=== PATIENT | male | born 1970 | race Caucasian/White ===

== ENCOUNTER 2020-10-25 09:12 | Outpatient (CLI) | payer OTHER | END 2020-10-25 09:13 | disposition home or self-care (01) | LOC: COV 09:12 | PROVIDERS: ATTEND Family Medicine | DX: Z20.828 Contact with and (suspected) exposure to other viral communicable diseases (principal) ==

== ENCOUNTER 2021-03-13 11:05 | Day surgery (SDC) | payer OTHER ==
[2021-03-13] MEDS ORDERED: LACTATED RINGERS 1,000 ML IV ONE (11:45)
[2021-03-13] MEDS ORDERED: HYDROmorphone 0.5 MG/0.5 ML SYRINGE IVP PRN (11:54)
[2021-03-13] MEDS ORDERED: fentaNYL 100 MCG/2 ML VIAL IVP PRN (11:54)
[2021-03-13] MEDS ORDERED: ePHEDrine 50 MG/ML VIAL IVP PRN (11:54)
[2021-03-13] MEDS ORDERED: METOCLOPRAMIDE 10 MG/2 ML VIAL IVP PRN (11:54)
[2021-03-13] MEDS ORDERED: ONDANSETRON 4 MG/2 ML VIAL IVP PRN (11:54)
[2021-03-13] MEDS ORDERED: ATROPINE ABBOJECT 1 MG/10 ML SYRINGE IVP PRN (11:54)
[2021-03-13] MEDS ORDERED: NALOXONE 0.4 MG/ML VIAL IVP PRN (11:54)
[2021-03-13] MEDS ORDERED: MORPHINE 2 MG/ML CARPUJECT IVP PRN (11:54)
--- NOTE | 2021-03-13 11:54 | ANESTHESIA ---
Pre-Anesthesia VS, & Labs - Diagnosis high risk colonoscopy - Procedure colonoscopy Vital Signs: Temp Pulse Resp BP Pulse Ox 36.7 C 48 L 16 124/61 100 03/13/21 11:30 03/13/21 11:30 03/13/21 11:30 03/13/21 11:30 03/13/21 11:30 Height: 5 ft 10 in Weight (kg): 81.4 kg Body Mass Index: 25.7 BMI Classification: Overweight - NPO >8 hours Home Medications and Allergies No Known Home Medications 03/07/21 Allergies/Adverse Reactions: Allergies Allergy/AdvReac Type Severity Reaction Status Date / Time No Known Drug Allergies Allergy Verified 03/07/21 11:52 Anes History & Medical History - Anesthetic History Anesthesia Complications: reports: No previous complications Family history of Anesthesia Complications: Denies Family history of Malignant Hyperthermia: Denies - Medical History Cardiovascular: reports: None Pulmonary: reports: None Gastrointestinal: reports: None Urinary: reports: None Musculoskeletal: reports: None Endocrine/Autoimmune: reports: None Skin: reports: Eczema - Surgical History Orthopedic: reports: Spine surgery Exam General: Alert, Oriented x3, Cooperative, No acute distress Dental: WNL Mouth Openin Fingerbreadth Neck Mobility: Normal Mallampati classification: I Respiratory: Lungs clear, Normal breath sounds, No respiratory distress, No accessory muscle use Cardiovascular: Regular rate, Normal S1, Normal S2, No murmurs Plan Anesthesia Type: General, Total IV Consent for Procedure(s) Verified and Reviewed: Yes Code Status: Attempt Resuscitation ASA classification: 1-Healthy patient Is this case an emergency?: No
[2021-03-13] MEDS ORDERED: LACTATED RINGERS 1,000 ML IV SCH (12:00)
[2021-03-13] MEDS ORDERED: MIDAZOLAM 2 MG/2 ML VIAL ONE (12:31)
[2021-03-13] MEDS ORDERED: PROPOFOL 1000 MG/100 ML 1,000 MG/100 ML BOTTLE IV ONE (12:31)
[2021-03-13 14:42] VITALS: BP 142/79
--- NOTE | 2021-03-13 16:04 | ANESTHESIA POST OP EVALUATION ---
Anesthesia Post Eval - Post Anesthesia Eval Vitals: Last Vital Signs Temp 36.4 C L 03/13/21 14:28 Pulse 46 L 03/13/21 14:42 Resp 18 03/13/21 14:42 BP 142/79 H 03/13/21 14:42 Pulse Ox 99 03/13/21 14:42 CV Function Including HR & BP: Stable Pain Control: Satisfactory Nausea & Vomiting: Negative Mental Status: Baseline Respiratory Status: Airway Patent Hydration Status: Satisfactory Anesthesia Complications: None
== END 2021-03-13 11:06 | disposition home or self-care (01) ==
LOC: SDS 11:05
PROVIDERS: ATTEND Surgery
PROC: 0DBN8ZZ Excision of Sigmoid Colon, Via Natural or Artificial Opening Endoscopic (ICD-10-PCS; principal; 2021-03-13 12:00)
DX: Z12.11 Encounter for screening for malignant neoplasm of colon (principal); D12.5 Benign neoplasm of sigmoid colon; K64.8 Other hemorrhoids; Z80.0 Family history of malignant neoplasm of digestive organs; Z87.891 Personal history of nicotine dependence; E66.3 Overweight; Z68.25 Body mass index [BMI] 25.0-25.9, adult
CPT/HCPCS: 45385; J7120

== ENCOUNTER 2021-03-19 17:02 | Outpatient (CLI) | payer OTHER | END 2021-03-19 17:03 | disposition home or self-care (01) | LOC: COV 17:02 | PROVIDERS: ATTEND Surgery | DX: Z01.812 Encounter for preprocedural laboratory examination (principal); K40.20 Bilateral inguinal hernia, without obstruction or gangrene, not specified as recurrent; K42.9 Umbilical hernia without obstruction or gangrene; Z20.822 Contact with and (suspected) exposure to COVID-19 ==

== ENCOUNTER 2021-03-21 08:50 | Day surgery (SDC) | payer OTHER ==
[2021-03-21] MEDS ORDERED: LACTATED RINGERS 1,000 ML IV ONE ×2 (08:58→13:25)
[2021-03-21] MEDS ORDERED: ceFAZolin 2 GM/50 ML 2 GM/50 ML BAG IV ONE (09:04)
[2021-03-21] MEDS ORDERED: LIDOCAINE-MPF 1% 30 ML VIAL ONE (09:08)
[2021-03-21] MEDS ORDERED: BUPIVACAINE 0.5%-EPI 1:200000 PF 30 ML VIAL ONE (09:08)
[2021-03-21] MEDS ORDERED: PROPOFOL 200 MG/20 ML VIAL IVP ONE (09:21)
[2021-03-21] MEDS ORDERED: MIDAZOLAM 2 MG/2 ML VIAL ONE (09:21)
[2021-03-21] MEDS ORDERED: KETOROLAC 30 MG/ML VIAL ONE (09:21)
[2021-03-21] MEDS ORDERED: ONDANSETRON 4 MG/2 ML VIAL ONE (09:21)
[2021-03-21] MEDS ORDERED: ROCURONIUM 50 MG/5 ML VIAL ONE ×2 (09:21→11:06)
[2021-03-21] MEDS ORDERED: LIDOCAINE-MPF 2% 5 ML VIAL ONE (09:21)
[2021-03-21] MEDS ORDERED: fentaNYL 100 MCG/2 ML VIAL ONE (09:22)
--- NOTE | 2021-03-21 09:35 | ANESTHESIA ---
Pre-Anesthesia VS, & Labs - Diagnosis bilateral inguinal hernia repair, open umbilical hernia, desires sterilization - Procedure Open umbilical hernia repair, bilateral laparoscopic inguinal hernia repairs, vasectomy Vital Signs: Temp Pulse Resp BP Pulse Ox 36.1 C L 47 L 16 132/79 H 97 03/21/21 08:59 03/21/21 08:59 03/21/21 08:59 03/21/21 08:59 03/21/21 08:59 Height: 5 ft 10 in Weight (kg): 83 kg Body Mass Index: 26.2 BMI Classification: Overweight - NPO >8 hours Home Medications and Allergies Home Medications: Ambulatory Orders No Known Home Medications 03/07/21 No Known Home Medications 03/07/21 Allergies/Adverse Reactions: Allergies Allergy/AdvReac Type Severity Reaction Status Date / Time No Known Drug Allergies Allergy Verified 03/20/21 13:43 Anes History & Medical History - Anesthetic History Anesthesia Complications: reports: No previous complications - Medical History Cardiovascular: reports: None Pulmonary: reports: None Gastrointestinal: reports: None Urinary: reports: None Musculoskeletal: reports: None Endocrine/Autoimmune: reports: None Skin: reports: Eczema Smoking Status: Never smoker History of Cancer?: No - Surgical History Orthopedic: reports: Spine surgery Exam General: Alert, Oriented x3 Dental: WNL Mouth Opening: Greater than 4 Fingerbreadths Neck Mobility: Normal Mallampati classification: I Thyromental Distance: greater than 6 cm Respiratory: Lungs clear Cardiovascular: Regular rate Mental/Cognitive Status: Alert/Oriented X3 Plan Anesthesia Type: General Consent for Procedure(s) Verified and Reviewed: Yes Code Status: Attempt Resuscitation ASA classification: 1-Healthy patient Is this case an emergency?: No
[2021-03-21] MEDS ORDERED: ACETAMINOPHEN 1,000 MG/100 ML 100 ML IV ONE (10:50)
[2021-03-21] MEDS ORDERED: GLYCOPYRROLATE 1 MG/5 ML VIAL ONE (11:00)
[2021-03-21] MEDS ORDERED: ROPIVACAINE 0.5% PF 20 ML AMPULE ONE (11:49)
[2021-03-21] MEDS ORDERED: SODIUM CHLORIDE 0.9% 10 ML VIAL IVP ONE (11:50)
[2021-03-21] MEDS ORDERED: SUGAMMADEX 200 MG/2 ML VIAL IVP ONE (12:39)
[2021-03-21] MEDS ORDERED: BUPIVACAINE 0.5%-EPI 1:200000 PF 30 ML VIAL SUBQ ONE (12:42)
[2021-03-21] MEDS ORDERED: LIDOCAINE 1% 50 ML MDV SUBQ ONE (12:43)
[2021-03-21] MEDS ORDERED: ONDANSETRON 4 MG/2 ML VIAL IVP PRN ×2 (13:38→13:44)
[2021-03-21] MEDS ORDERED: HYDROmorphone 0.5 MG/0.5 ML SYRINGE IVP PRN ×2 (13:38→13:44)
[2021-03-21] MEDS ORDERED: oxyCODONE 5 MG TABLET PO PRN (13:38)
[2021-03-21] MEDS ORDERED: fentaNYL 100 MCG/2 ML VIAL IVP PRN (13:44)
[2021-03-21] MEDS ORDERED: NALOXONE 0.4 MG/ML VIAL IVP PRN (13:44)
[2021-03-21] MEDS ORDERED: ePHEDrine 50 MG/ML VIAL IVP PRN (13:44)
[2021-03-21] MEDS ORDERED: MORPHINE 2 MG/ML CARPUJECT IVP PRN (13:44)
[2021-03-21] MEDS ORDERED: METOCLOPRAMIDE 10 MG/2 ML VIAL IVP PRN (13:44)
[2021-03-21] MEDS ORDERED: ATROPINE ABBOJECT 1 MG/10 ML SYRINGE IVP PRN (13:44)
--- NOTE | 2021-03-21 13:49 | OPERATIVE REPORT ---
Operative Report - General Procedure Date: 03/21/21 Planned Procedure: 1. Diagnostic laparoscopy 2. Right possible left inguinal hernia repair 3. Umbilical hernia repair, laparoscopic assisted 4. Possible vasectomy 5. Other indicated procedures Pre-Op Diagnosis: Sx RIH; desire for sterilization; possible LIH; Sx UH Procedure Performed: 1. Diagnostic laparoscopy 2. Right inguinal hernia repair, Laparoscopic 3. Umbilical hernia repair, laparoscopic assisted 4. Adhesiolysis 5. TAP block per anesthesia Post Op Diagnosis: No evidence of left inguinal hernia; adhesions - Procedure Note Primary Surgeon: Pako Secondary Surgeon: Jasper Anesthesia Provider: Yovani Anesthesia Technique: General ET tube, Local Pathology: Umbilical hernia sac Estimated Blood Loss (mL): 10 Indications: See EMR Findings: See below Complications: None - Other Other Information/Narrative: Indications: This 50-year-old male developed a symptomatic right inguinal hernia. Laparoscopic repair was indicated, and because of the patient's age/sex/nature of the hernia/patient preference laparoscopic repair was elected. Please note that the patient was also considered for left inguinal hernia repair and if that case afforded bilateral exposure we could consider laparoscopic directed vasectomy however the patient was advised that if at any point during this case were uncomfortable with this would defer. The patient also had a large umbilical hernia that we would reinforce with mesh as well. Patient was advised of the risk and benefits. Procedure: Transabdominal preperitoneal laparoscopic (GADIEL) repair of right possible left inguinal hernia. Description of procedure: Patient was taken to the operating room placed supine on the operating table. Informed consent was already obtained. Patient was induced for general endotracheal anesthesia. Patient at this time was placed for Barone catheter. Patient was offloaded and padded. The patient was placed supine with arms tucked at the sides. After obtaining adequate anesthesia, the patient's abdomen was prepped and draped in standard sterile fashion. The patient was placed in the Trendelenburg position. Timeout was called and agreed to by all in the room. A planned access point was incised periumbilical. An incision was made sharply. Skin and subcutaneous tissues were divided using Bovie electrocautery. Fascia was encountered it was sharply divided. Muscle was bluntly divided. Posterior fascia was elevated and sharply divided. Abdominal cavity was entered without incident. There were the following notable findings: Pelvic adhesions At this time we proceeded to repair the right inguinal hernia. We proceeded with two 5 mm trochars both on the left lateral to the rectus sheath. We proceeded with the camera in the umbilicus. This was approached in this manner given the planned umbilical hernia laparoscopic assisted and the plan to perform inguinal hernia repair laparoscopically as well. Please note the patient was marked for right inguinal hernia repair preoperatively which was also confirmed during timeout. Both inguinal regions were expected and the median umbilical ligament, medial umbilical ligament and lateral umbilical fold were identified the median umbilical ligament was divided sharply with electrocautery to achieve optimal exposure. The right abdominal peritoneum was incised with endoscopic electrocautery along a line 2 cm above the superior edge of the hernia defect, extending from the medial median umbilical ligament to the anterior superior iliac spine. The peritoneal flap was mobilized inferiorly using blunt and sharp dissection. The inferior epigastric vessels were exposed and the pubic s ymphysis was identified. Cristino's ligament was dissected to its junction with femoral vein. The dissection was continued inferiorly to the iliopubic tract, with care taken to avoid injury to the femoral branch of the general femoral nerve and the lateral femoral cutaneous nerve. Please note that as we began and continued dissection of the peritoneum there was cecal and sigmoid colonic adhesions which were divided to avoid any inadvertent injury if the peritoneum was compromised. The right ureter was identified and protected throughout. The cord structures were skeletonized. The direct hernia sac was identified and reduced by gentle traction. The indirect hernia sac was noted to be small and was easily mobilized from the cord structures and reduced into the peritoneal cavity. A large piece of mesh was rolled longitudinally into a compact cylinder and passed through the umbilical trocar. The cylinder was placed along the inferior aspect of the working space and unrolled into place to completely cover the defect direct indirect and femoral spaces. We used a Bard 3D max mesh large design for right inguinal hernia placement. The mesh was tacked laparoscopically into place along the pubic tubercle. We positioned this in such a way in order to provide maximum prophylaxis against recurrence. Thereafter we proceeded to close the peritoneal flap as follows. Please note the hernia sac was also secured to prevent recurrence and tacked to the anterior abdominal wall. We closed the peritoneal flap using a V-Loc suture starting laterally and progressing medially this was closed over mesh without any complication. After assuring adequate hemostasis we proceeded with the umbilical hernia repair. After ensuring adequate hemostasis using electrocautery, abdomen was irrigated and aspirated clear. We thereafter proceeded with the umbilical hernia repair. An Ventral light ECHO ST system was used to reinforce this area. We placed the mesh intra-abdominally with the traction suture affixed to the scaffold exposed through the umbilical defect. We closed the umbilicus with multiple [id number] of 0 Vicryl once these were secured the mesh was pulled approximating the anterior abdominal wall. At this time we proceeded to resect late the abdomen without any complication. We thereafter tacked the mesh laparoscopically through the accessory ports having placed 1 additional port in the right lower quadrant 5 mm to assist with this part of the procedure. Once that mesh was noted to be affixed and approximated to the anterior abdominal wall, the scaffold was removed thereafter without any complication. The trocars were removed, and the pneumoperitoneum evacuated. The trocar incisions were closed using skin william and dry dressing applied. The patient tolerated the procedure well and was taken to the postanesthesia care unit in stable condition. Counts of sponges needles and instruments correct at the conclusion of this case. Please note that voice recognition software was used to transcribe this note and inadvertent errors might persist in spite of review and editing. I am obliged to you for your attention. I am thankful to you for allowing me to participate with you in this care of this patient.
--- NOTE | 2021-03-21 13:53 | PROVIDER PROGRESS NOTE ---
Progress Note Procedure Date: 03/21/21 Planned Procedure: 1. Diagnostic laparoscopy 2. Right possible left inguinal hernia repair 3. Umbilical hernia repair, laparoscopic assisted 4. Possible vasectomy 5. Other indicated procedures Pre-Op Diagnosis: Sx RIH; desire for sterilization; possible LIH; Sx UH Procedure Performed: 1. Diagnostic laparoscopy 2. Right inguinal hernia repair, Laparoscopic 3. Umbilical hernia repair, laparoscopic assisted 4. Adhesiolysis 5. TAP block per anesthesia Post Op Diagnosis: No evidence of left inguinal hernia; adhesions - Procedure Note Primary Surgeon: Pako Secondary Surgeon: Jasper Anesthesia Provider: Yovani Anesthesia Technique: General ET tube, Local Pathology: Umbilical hernia sac Estimated Blood Loss (mL): 10 Indications: See EMR Findings: See below Complications: None
[2021-03-21] MEDS ORDERED: LACTATED RINGERS 1,000 ML IV SCH (14:00)
[2021-03-21] MEDS: LACTATED RINGERS 1,000 ML IV SCH ×2 (14:20→21:49)
--- NOTE | 2021-03-21 16:41 | ANESTHESIA POST OP EVALUATION ---
Anesthesia Post Eval - Post Anesthesia Eval Vitals: Last Vital Signs Temp 36.9 C 03/21/21 16:07 Pulse 68 03/21/21 16:07 Resp 18 03/21/21 16:07 BP 104/67 03/21/21 16:07 Pulse Ox 98 03/21/21 16:07 CV Function Including HR & BP: Stable Pain Control: Satisfactory Nausea & Vomiting: Negative Mental Status: Baseline Respiratory Status: Airway Patent Hydration Status: Satisfactory Anesthesia Complications: None
[2021-03-21 20:13] VITALS: BP 125/64
[2021-03-21] MEDS ORDERED: TAMSULOSIN 0.4 MG CAPSULE PO SCH (21:00)
== END 2021-03-21 23:01 | disposition home or self-care (01) ==
LOC: SDS 08:50 → MS2 13:49 → SDS 23:01
PROVIDERS: ATTEND Surgery
DX: K40.90 Unilateral inguinal hernia, without obstruction or gangrene, not specified as recurrent (principal); K42.9 Umbilical hernia without obstruction or gangrene; E66.3 Overweight; Z68.26 Body mass index [BMI] 26.0-26.9, adult
CPT/HCPCS: 49650; A9270; C1781; J0131; J0690; J7120